=== PATIENT | female | born 1940 | race Two or more races ===

== ENCOUNTER 2023-02-27 11:59 | Emergency (ER) | payer OTHER ==
[~2023-02-27] VITALS: Ht 157.5 cm; Wt 61.2 kg
[2023-02-27] MEDS ORDERED: HYZAAR 100-12.1 EACH PO (12:30)
[2023-02-27] MEDS ORDERED: GLIMEPIRIDE2 MG (12:30)
[2023-02-27] MEDS ORDERED: SINGULAIR4 MG PO (12:31)
[2023-02-27] MEDS ORDERED: GLUMETZA500 MG (12:31)
== END 2023-02-27 18:45 | disposition home or self-care (01) ==
LOC: ER 11:59
DX: S00.93XA Contusion of unspecified part of head, initial encounter (principal); W19.XXXA Unspecified fall, initial encounter; Y93.9 Activity, unspecified; Y92.9 Unspecified place or not applicable; Y99.9 Unspecified external cause status

== ENCOUNTER 2025-01-11 15:34 | Emergency (ER) | payer OTHER ==
[~2025-01-11] VITALS: Ht 157.5 cm; Wt 67.1 kg
[~2025-01-11 15:34] MED LIST: GLIMEPIRIDE2 MG; GLUMETZA500 MG; HYZAAR 100-12.1 EACH PO; SINGULAIR4 MG PO
[2025-01-11] MEDS ORDERED: 0.9 % SODIUM CHLORIDE 1,000 ML IV STA (17:16)
[2025-01-11 17:46] LABS: BASO % 0.7 % (0.1-1.2); EOS # 0.31 (0.04-0.54); EOS % 5.4 % (0.7-7.0); LYMPH # 1.30 (1.18-3.74); LYMPH % 22.7 % (19.3-53.1); MEAN PLATELET VOLUME 10.50 fl (9.4-12.4); MONO # 0.58 (0.24-0.82); MONO % 10.1 % (4.7-12.5); NEUT # 3.47 (1.56-6.13); NEUT % 60.6 % (34.0-71.1); RED CELL DISTRIBUTION WIDTH 12.9 % (11.6-14.4)
[2025-01-11 18:11] LABS: BUN CREA RATIO 24 (7.0-25.0); CREATININE SERUM 1.48 mg/dL (0.55-1.02); GFR 33.68
[2025-01-11 18:12] LABS: GLUCOSE FASTING 223 mg/dL (65-100); OSMOLALITY SERUM 300 MOSM/KG (275-295)
[2025-01-11 19:28] LABS: URINE APPEARANCE Clear; URINE BILIRRUBIN Negative (NEGATIVE); URINE BLOOD Negative; URINE COLOR Dark Yellow; URINE GLUCOSE Negative (NEGATIVE); URINE KETONE Negative (NEGATIVE); URINE LEUKOCYTE Small; URINE NITRATE Negative; URINE PROTEIN Negative (NEGATIVE); URINE UROBILINOGEN 0.2 E.U./dl
[2025-01-11 19:32] LABS: URINE BACTERIA 22.7 uL (0.0-1933); URINE EPITHELIAL CELLS 6.7 uL (0.0-38.8); URINE RBC 2.3 uL (0.0-20.8); URINE WBC 22.3 uL (0.0-23.2)
[2025-01-11 20:35] LABS: URINE CAST 0.14 uL (0.0-1.40)
[2025-01-11] MEDS ORDERED: ADVIL DUAL ACT1 EACH PO (22:23)
[2025-01-11] MEDS ORDERED: TAMS0.4C PO (22:23)
[2025-01-11] MEDS ORDERED: KETOROLAC TROMETHAMINE 15 MG VIAL IM ONE (22:30)
== END 2025-01-11 22:27 | disposition home or self-care (01) ==
LOC: ER 15:34
PROVIDERS: Emergency Medicine
DX: N20.0 Calculus of kidney (principal); K57.32 Diverticulitis of large intestine without perforation or abscess without bleeding; K59.00 Constipation, unspecified
CPT/HCPCS: 36415; 74177; 96365; 96366; 96372; 99284; J1885; J7030